=== PATIENT | female | born 2000 | race Hispanic/Latino ===

== ENCOUNTER 2023-12-24 15:26 | Emergency (ER) | payer SELFPAY ==
[~2023-12-24] VITALS: Ht 172.7 cm; Wt 95.3 kg
[2023-12-24 15:42] VITALS: PULSE 81; RESP 16; TEMP 99
[2023-12-24 16:42] LABS: BILIRUBIN,URINE NEGATIVE (NEGATIVE); CLARITY,URINE CLOUDY (CLEAR); COLOR,URINE YELLOW (YELLOW); GLUCOSE, URINE NEGATIVE (NEGATIVE); KETONES,URINE TRACE (NEGATIVE); LEUKOCYTE ESTERASE ,URINE 2+ (NEGATIVE); NITRITE,URINE POSITIVE (NEGATIVE); PH,URINE 6.5 (5 - 7); PROTEIN,URINE DIPSTICK >=300 (NEGATIVE); URINE UROBILINOGEN 0.2 mg/dL (0.2 - 1)
[2023-12-24 16:46] LABS: WBC,URINE (MAN) >50 /HPF (0-5)
[2023-12-24 16:47] LABS: BACTERIA,URINE MANY /HPF; RBC,URINE >50 /HPF (0-5)
[2023-12-24 16:48] LABS: EPITHELIAL CELLS,URINE FEW /LPF; TRANSITIONAL EPI CELLS,URINE FEW
[2023-12-24] MEDS ORDERED: CEPHALEXIN500 MG PO (17:33)
[2023-12-24 17:46] VITALS: BP 128/78; PULSE 78; RESP 15; TEMP 98.8; O2SAT 100
== END 2023-12-24 17:37 | disposition home or self-care (01) ==
LOC: ER 15:44
DX: R50.9 Fever, unspecified (principal); N39.0 Urinary tract infection, site not specified; R30.0 Dysuria; M54.50 Low back pain, unspecified
CPT/HCPCS: 81001; 99283